=== PATIENT | female | born 1965 | race Caucasian/White ===

== ENCOUNTER → 2024-10-19 11:19 | Outpatient (REF) | payer OTHER, SELFPAY | LOC: HWRAD 11:19 | PROVIDERS: ATTENDING PHYSICIAN Nurse Practitioner Adult Health | DX: R31.9 Hematuria, unspecified (principal); R82.998 Other abnormal findings in urine | CPT/HCPCS: 76770 ==

== ENCOUNTER → 2024-11-14 15:39 | Outpatient (REF) | payer OTHER, SELFPAY | LOC: HWWDC 15:39 | PROVIDERS: ATTENDING PHYSICIAN Nurse Practitioner Adult Health; REFERRING PHYSICIAN Obstetrics & Gynecology Gynecology | DX: Z12.31 Encounter for screening mammogram for malignant neoplasm of breast (principal) | CPT/HCPCS: 77063; 77067 ==